=== PATIENT | male | born 1960 | race Caucasian/White ===

== ENCOUNTER 2016-10-25 20:23 | Emergency (ER) | payer MEDICAID ==
--- NOTE | 2016-10-25 20:46 | ERNOTE ---
Abdominal HPI - General Chief Complaint: Abdominal Pain Time Seen by Provider: 10/25/16 20:29 Source: patient Exam Limitations: no limitations - Immun/Allergies/Home Medications Immunizatons: IMMUNIZATION HX Immunizations Up to Date Yes History of Influenza Vaccine No Hx Pneumococcal Vaccination Yes Allergies/Adverse Reactions: Allergies clarithromycin [From Biaxin] Allergy (Verified 10/25/16 20:38) hydrocodone Allergy (Verified 10/25/16 20:38) Home Medications: HOME MEDICATIONS Ciprofloxacin HCl [Cipro] 500 mg PO BID #20 tablet 10/25/16 [Last Taken Unknown] metroNIDAZOLE [Flagyl] 500 mg PO Q8H #30 tablet 10/25/16 [Last Taken Unknown] traMADol HCL [Tramadol HCl ER] 100 mg PO DAILY PRN #10 cpbp.25.75 10/25/16 [ Last Taken Unknown] - History of Present Illness Narrative: Patient presents for severe abdominal pain and bloating and diarrhea. The abdominal pain and bloating started at 7:30 tonight. The diarrhea started 7 days ago. Review of Systems - Review of Systems Constitutional: Present: no symptoms reported EYE: Present: no symptoms reported ENT: Present: no symptoms reported Respiratory: Present: cough Gastrointestinal/Abdominal: Present: See HPI, diarrhea - Patient's Past Medical History Patient History - Medical: No pertinent hx Patient History - Cardiac/Respiratory: Asthma, COPD, CVA/Stroke, Myocardial Infarction Patient History - Cancer: No Hx of Cancer Patient History - Surgical Procedures: Appendectomy Patient History - Other: None - Social History Living Situations: home Psych History: No pertinent hx Smoking Status: Former smoker Alcohol Use: none Drug Use: none - Immunizations Immunizations Up to Date: Yes Hx Pneumococcal Vaccination: Yes History of Influenza Vaccine: No Physical Exam - Physical Exam General Appearance: Present: wd/wn, alert, no apparent distress Head Exam: Present: normal inspection, no evidence of injury Neck: Present: normal inspection, nontender Respiratory: Present: no respiratory distress, normal breath sounds, no accessory muscle use, chest nontender, lungs clear Cardiovascular/Chest: Present: regular rate, rhythm, no murmur, normal peripheral pulses Gastrointestinal/Abdominal: Present: other - abdomen is distended and tense I hear very distant episodic bowel sounds. Patient has diffuse abdominal tenderness on palpation, there appears to not be any rebound tenderness and I don't feel any masses deep palpation of his belly is virtually impossible as the patient's abdomen is distended and tense and tender. ED Progress - Results and Orders Patient's Lab Results:: I have reviewed the patient's lab results. - Vital Signs Patient's Vital Signs:: I have reviewed the patient's vital signs. Vital Signs: Vital Signs 10/25/16 20:32 Temperature 37 C Pulse Rate 97 Respiratory 18 Rate Blood Pressure 132/84 O2 Sat by Pulse 95 Oximetry - Progress/Reassessment Chief Complaint: Abdominal Pain Plan - Plan Plan: The CT reveals findings potentially consistent with inflammation of the mesentery. She complains of pain and diarrhea at this time this examiner were treat him for colitis/inflammation of the mesentery and treat his pain and have him follow-up with his primary care doctor Departure - Departure Clinical Impression: Colitis, Mesenteric adenitis Disposition: Home self-care Condition: Good Instructions: Chronic Diarrhea Referrals: Yordy Charles MD [Primary Care Provider] - Prescriptions: Ciprofloxacin HCl [Cipro] 500 mg PO BID #20 tablet metroNIDAZOLE [Flagyl] 500 mg PO Q8H #30 tablet traMADol HCL [Tramadol HCl ER] 100 mg PO DAILY PRN #10 cpbp.25.75 PRN Reason: Pain
[2016-10-25] MEDS ORDERED: NORMAL SALINE 1,000 ML IV ONE (20:50)
[2016-10-25] MEDS ORDERED: ONDANSETRON HCL/PF 2 MG/ML VIAL IV ONE (21:02)
[2016-10-25 21:07] LABS: Hematocrit 41.4 % (42.0-52.0); Hemoglobin 13.9 gm/dL (13.5-18.0); Mean Cell Volume 87.2 fl (78-100); Mean Corpuscular Hemoglobin 29.3 pg (27-31); Mean Corpuscular Hgb Conc 33.6 g/dl (32-36); Mean Platelet Volume 9.2 fl (6.0-9.5); Neutrophil % 71.6 % (42-75.0); Platelet Count 287 K/mm3 (150-450); Red Blood Count 4.75 M/mm3 (4.7-6.0); Red Cell Distribution Width 13.5 % (11.5-14.0); White Blood Count 12.5 K/mm3 (4.0-10.5)
[2016-10-25] MEDS ORDERED: DIATRIZOATE MEGLUMINE, SODIUM 30 ML BTL ONE (21:08)
[2016-10-25] MEDS ORDERED: ONDANSETRON HCL/PF 2 MG/ML VIAL ONE (21:08)
[2016-10-25 21:19] LABS: Albumin * 3.6 gm/dl (3.4-5.0); Anion Gap 13.7 mmol/L (6.8-13.8); BUN/Creatinine Ratio 9.4 (9.0-21.6); Bilirubin, Total 0.6 mg/dL (0.0-1.1); Ca. Corrected For Albumin 8.4 mg/dL (8.4-10.2); Calcium * 8.4 mg/dL (7.9-10.9); Carbon Dioxide 27.8 mmol/L (24-32.6); Potassium 3.5 mmol/L (3.4-4.6); Total Protein 7.3 gm/dL (6.2-8.2)
[2016-10-25] MEDS ORDERED: DIATRIZOATE MEGLUMINE, SODIUM 30 ML BTL PO ONE (21:29)
[2016-10-25 22:09] LABS: Urine Bilirubin Negative (NEGATIVE); Urine Blood 25 /ul (NEGATIVE); Urine Ketone Negative (NEGATIVE); Urine Nitrite Negative (NEGATIVE); Urine Protein Negative (NEGATIVE); Urine Specific Gravity >=1.030 SP.GR. (1.005-1.030); Urine Urobilinogen Normal (NORMAL); Urine pH 5.5 pH (5.0-7.0)
[2016-10-25 22:21] LABS: Urine Appearance Clear; Urine Bacteria None Seen; Urine Color Dark Yellow; Urine Mucus Few - 1+; Urine RBC 0-5 /hpf (0-5); Urine WBC None Seen /hpf (0-5)
[2016-10-25 23:26] VITALS: BP 125/72
[2016-10-25] MEDS ORDERED: metroNIDAZOLE 500 MG TABLET PO ONE (23:46)
[2016-10-25] MEDS ORDERED: CIPROFLOXACIN HCL 250 MG TABLET PO ONE (23:46)
[2016-10-25] MEDS ORDERED: metroNIDAZOLE 500 MG TABLET ONE (23:47)
[2016-10-25] MEDS ORDERED: CIPROFLOXACIN HCL 250 MG TABLET ONE (23:47)
[2016-10-25] MEDS ORDERED: traMADol HCL 50 MG TABLET PO ONE (23:51)
[2016-10-25] MEDS ORDERED: KETOROLAC TROMETHAMINE 30 MG/ML VIAL IV ONE (23:52)
[2016-10-25] MEDS ORDERED: traMADol HCL 50 MG TABLET ONE (23:52)
== END 2016-10-25 23:58 | disposition home or self-care (01) ==
LOC: ER 20:23
DX: K52.9 Noninfective gastroenteritis and colitis, unspecified (principal); I88.0 Nonspecific mesenteric lymphadenitis
CPT/HCPCS: 36415; 74177; 80053; 81001; 85025; 96374; 99284; J2405

== ENCOUNTER 2016-11-04 12:15 | Emergency (ER) | payer MEDICAID ==
[2016-11-04] MEDS ORDERED: METOCLOPRAMIDE HCL 5 MG/ML VIAL IV ONE (12:51)
[2016-11-04] MEDS ORDERED: diphenhydrAMINE HCL 50 MG/ML VIAL IV ONE (12:51)
[2016-11-04] MEDS ORDERED: NORMAL SALINE 1,000 ML IV ONE ×2 (12:51→15:37)
[2016-11-04 13:19] LABS: Hematocrit 44.4 % (42.0-52.0); Mean Cell Volume 87.9 fl (78-100); Mean Corpuscular Hemoglobin 29.7 pg (27-31); Mean Corpuscular Hgb Conc 33.8 g/dl (32-36); Platelet Count 267 K/mm3 (150-450); Red Blood Count 5.05 M/mm3 (4.7-6.0); Red Cell Distribution Width 13.6 % (11.5-14.0); White Blood Count 17.9 K/mm3 (4.0-10.5)
[2016-11-04 13:23] LABS: Total Cells Counted 100
[2016-11-04 13:29] LABS: Eosinophil 18 % (0-3); Lymphocyte 13 % (20-51); Monocyte 8 % (0-9); Neutrophil 61 % (42-75); Neutrophil # 10.9 K/mm3 (1.3-6.0)
[2016-11-04 13:30] LABS: Platelet Estimate Normal (NORMAL); RBC Morphology Normal (NORMAL)
[2016-11-04] MEDS ORDERED: METOCLOPRAMIDE HCL 5 MG/ML VIAL ONE (13:30)
[2016-11-04] MEDS ORDERED: diphenhydrAMINE HCL 50 MG/ML VIAL ONE (13:30)
[2016-11-04 13:31] LABS: Albumin * 3.6 gm/dl (3.4-5.0); Anion Gap 18.5 mmol/L (6.8-13.8); BUN/Creatinine Ratio 11.2 (9.0-21.6); Bilirubin, Total 0.8 mg/dL (0.0-1.1); Ca. Corrected For Albumin 8.8 mg/dL (8.4-10.2); Calcium * 8.8 mg/dL (7.9-10.9); Carbon Dioxide 22.4 mmol/L (24-32.6); Potassium 3.9 mmol/L (3.4-4.6); Total Protein 7.2 gm/dL (6.2-8.2)
[2016-11-04 14:34] LABS: Urine Bilirubin Negative (NEGATIVE); Urine Blood Negative /ul (NEGATIVE); Urine Ketone Negative (NEGATIVE); Urine Protein 15 mg/dL (NEGATIVE); Urine Specific Gravity >=1.030 SP.GR. (1.005-1.030); Urine Urobilinogen Normal (NORMAL); Urine pH 5.5 pH (5.0-7.0)
[2016-11-04 14:47] LABS: Urine Amorphous Sediment Many - 3+ (NONE-FEW); Urine Appearance Turbid; Urine Bacteria 2+; Urine Color Brown; Urine Nitrite Positive (NEGATIVE); Urine RBC TRACE /hpf (0-5)
[2016-11-04] MEDS ORDERED: KETOROLAC TROMETHAMINE 30 MG/ML VIAL IV ONE (15:03)
[2016-11-04] MEDS ORDERED: KETOROLAC TROMETHAMINE 30 MG/ML VIAL ONE (15:08)
[2016-11-04] MEDS ORDERED: DICYCLOMINE HCL 10 MG/ML AMPUL IM ONE ×2 (16:08→16:09)
--- NOTE | 2016-11-04 16:50 | ERNOTE ---
Abdominal HPI - General Chief Complaint: Abdominal Pain Time Seen by Provider: 11/04/16 12:20 Source: patient, family Exam Limitations: no limitations - Immun/Allergies/Home Medications Immunizatons: IMMUNIZATION HX Immunizations Up to Date Yes History of Influenza Vaccine Yes Hx Pneumococcal Vaccination No Allergies/Adverse Reactions: Allergies clarithromycin [From Biaxin] Allergy (Verified 11/04/16 12:23) hydrocodone Allergy (Verified 11/04/16 12:23) Home Medications: HOME MEDICATIONS Ciprofloxacin HCl [Cipro] 500 mg PO BID #20 tablet 10/25/16 [Last Taken Unknown] metroNIDAZOLE [Flagyl] 500 mg PO Q8H #30 tablet 10/25/16 [Last Taken Unknown] traMADol HCL [Tramadol HCl ER] 100 mg PO DAILY PRN #10 cpbp.25.75 10/25/16 [ Last Taken Unknown] Dicyclomine HCl [Bentyl] 10 mg PO TID #30 capsule 11/04/16 [Last Taken Unknown] Ondansetron [Zofran Odt] 4 mg PO Q6H PRN #20 tab 11/04/16 [Last Taken Unknown] - History of Present Illness Narrative: Patient has had several weeks of abdominal pain with profound diarrhea as well as nausea and vomiting. He states she still has significant cramping abdominal pain and still feels somewhat nauseated. Patient is very frustrated because he' s had multiple CAT scans without being able to figure out exactly was going on, he rates his pain as moderate to severe in intensity. Timing: constant, intermittent Quality: severe, cramping Activities at Onset: none Modifying Factors - (Improves): Present: vomiting Modifying Factors - (Worsens): Present: eating Associated Symptoms: Present: diarrhea-mucous, nausea, vomiting Prior Treatment: Present: recently seen, treated by physician, currently on antibiotics Review of Systems - Review of Systems Constitutional: Present: See HPI EYE: Present: no symptoms reported ENT: Present: no symptoms reported Respiratory: Present: no symptoms reported Cardiology: Present: no symptoms reported Gastrointestinal/Abdominal: Present: nausea, vomiting, diarrhea Genitourinary: Present: decreased urinary output Musculoskeletal: Present: no symptoms reported Skin: Present: no symptoms reported Neurological: Present: no symptoms reported Endocrine: Present: no symptoms reported Hematologic/Lymphatic: Present: no symptoms reported Psych: Present: no symptoms reported - Patient's Past Medical History Patient History - Medical: No pertinent hx Patient History - Cardiac/Respiratory: Asthma, COPD, CVA/Stroke, Myocardial Infarction Patient History - Cancer: No Hx of Cancer Patient History - Surgical Procedures: Appendectomy Patient History - Other: None - Social History Living Situations: home Abuse History: No History of abuse Psych History: No pertinent hx Smoking Status: Former smoker Alcohol Use: none Drug Use: none - Immunizations Immunizations Up to Date: Yes Hx Pneumococcal Vaccination: No History of Influenza Vaccine: Yes Physical Exam - Physical Exam General Appearance: Present: wd/wn, alert, severe distress Head Exam: Present: normal inspection Eye Exam: Normal inspection: bilateral, PERRL: bilateral Ears, Nose, Throat: Present: normal pharynx, dry mucous membranes Neck: Present: normal inspection, nontender Respiratory: Present: no respiratory distress, normal breath sounds, no accessory muscle use, chest nontender, lungs clear Cardiovascular/Chest: Present: regular rate, rhythm, no murmur, normal peripheral pulses Gastrointestinal/Abdominal: Present: normal bowel sounds, nondistended, tenderness, guarding Rectal Exam: Present: deferred Back Exam: Present: normal inspection, normal range of motion Extremity Exam: Present: normal inspection, non-tender, no edema, normal range of motion Neurological Exam: Present: alert, oriented, normal mood/affect Skin Exam: Present: normal color, warm/dry Lymphatic Exam: Present: no adenopathy ED Progress - Results and Orders Patient's Lab Results:: I have reviewed the patient's lab results. - Vital Signs Patient's Vital Signs:: I have reviewed the patient's vital signs. Vital Signs: Vital Signs 11/04/16 11/04/16 11/04/16 12:18 12:49 12:51 Temperature 36.7 C Pulse Rate 96 101 H 102 H Respiratory 16 18 16 Rate Blood Pressure 143/73 151/80 133/84 O2 Sat by Pulse 96 94 93 Oximetry 11/04/16 11/04/16 11/04/16 13:04 14:04 14:28 Temperature Pulse Rate 100 90 93 Respiratory 13 19 18 Rate Blood Pressure 136/85 131/72 122/69 O2 Sat by Pulse 95 97 97 Oximetry 11/04/16 14:50 Temperature Pulse Rate 91 Respiratory 23 H Rate Blood Pressure 139/83 O2 Sat by Pulse 98 Oximetry - X-Ray X-Ray #1 X-Ray: abdomen Interpretation: Reviewed by me - Progress/Reassessment Chief Complaint: Abdominal Pain Progress:: Improved Plan - Plan Plan: Patient was not able to give us any urine to after the first liter fluid, and after the second liter of fluid he started to feel significantly better. We did have to give him 10 of Reglan and 50 of Benadryl IV, 1 g of Rocephin IV to treat UTI and 20 mg of Bentyl IM. Patient states she is feeling so much better now and much closer to his baseline, the best he has felt in several weeks. The patient is started to have his first formed stool here in the ED and it was negative proceed, so we will have him hold off with any further antibiotics at this point. He will be given a prescription for Zofran as well as Bentyl for any further abdominal pain and spasms. He will stay on his probiotics and he will call Dr. Phillips for a follow-up appointment. Departure - Departure Clinical Impression: Gastroenteritis Disposition: Home self-care Condition: Good Instructions: Viral Gastroenteritis, Adult, [id number] Referrals: Yordy Charles MD [Primary Care Provider] - Prescriptions: Dicyclomine HCl [Bentyl] 10 mg PO TID #30 capsule Ondansetron [Zofran Odt] 4 mg PO Q6H PRN #20 tab PRN Reason: Nausea And Vomiting
[2016-11-04] MEDS ORDERED: ONDANSETRON 4 MG TAB.RAPDIS PO ONE (17:06)
[2016-11-04] MEDS ORDERED: DICYCLOMINE HCL 20 MG TABLET ONE (17:06)
[2016-11-04] MEDS ORDERED: DICYCLOMINE HCL 10 MG CAPSULE PO ONE (17:06)
[2016-11-04] MEDS ORDERED: ONDANSETRON 4 MG TAB.RAPDIS ONE ×2 (17:06→17:08)
[2016-11-04] MEDS ORDERED: DICYCLOMINE HCL 10 MG CAPSULE ONE (17:12)
[2016-11-04 17:47] VITALS: BP 126/71
== END 2016-11-04 17:54 | disposition home or self-care (01) ==
LOC: ER 12:15
DX: K52.9 Noninfective gastroenteritis and colitis, unspecified (principal)

== ENCOUNTER 2016-11-30 13:47 | Emergency (ER) | payer MEDICAID ==
[2016-11-30] MEDS ORDERED: ONDANSETRON HCL/PF 2 MG/ML VIAL IV ONE (14:32)
[2016-11-30] MEDS ORDERED: NORMAL SALINE 1,000 ML IV ONE (14:33)
[2016-11-30] MEDS ORDERED: KETOROLAC TROMETHAMINE 30 MG/ML VIAL IV ONE (14:33)
[2016-11-30] MEDS ORDERED: METHYLPREDNISOLONE SOD SUCC/PF 40 MG/ML VIAL IV ONE (14:34)
[2016-11-30] MEDS ORDERED: ORPHENADRINE CITRATE 30 MG/ML VIAL IM ONE (14:38)
[2016-11-30] MEDS ORDERED: KETOROLAC TROMETHAMINE 60 MG/2 ML VIAL IM ONE (14:38)
--- NOTE | 2016-11-30 14:42 | ERNOTE ---
Abdominal HPI - Narrative Date of Service: 11/30/16 - General Chief Complaint: Abdominal Pain Time Seen by Provider: 11/30/16 13:57 - Immun/Allergies/Home Medications Immunizatons: IMMUNIZATION HX Immunizations Up to Date Yes History of Influenza Vaccine No Hx Pneumococcal Vaccination No Allergies/Adverse Reactions: Allergies clarithromycin [From Biaxin] Allergy (Verified 11/30/16 13:58) hydrocodone Allergy (Verified 11/30/16 13:58) Home Medications: HOME MEDICATIONS Dicyclomine HCl [Bentyl] 10 mg PO TID #30 capsule 11/04/16 [Last Taken Unknown] Ondansetron [Zofran Odt] 4 mg PO Q6H PRN #20 tab 11/04/16 [Last Taken Unknown] Amitriptyline HCl 11/30/16 [Last Taken Unknown] Simvastatin 11/30/16 [Last Taken Unknown] predniSONE [Prednisone] 3 tab PO DAILY #9 tab 11/30/16 [Last Taken Unknown] - History of Present Illness Narrative: Pt. comes in with c/o severe diarrhea, and abdominal pain for three months. Pt. states that he has had multiple CTs and ultrasounds and was diagnosed with colitis and has been hospitalized once last week for three days with short term relief of symptoms but states that they return after medications wear off. Review of Systems - Review of Systems Constitutional: Present: weakness, fatigue, malaise. Absent: fever, chills EYE: Present: no symptoms reported. Absent: eye pain, double vision, vision changes ENT: Present: no symptoms reported. Absent: nose congestion, nasal drainage, sore throat Respiratory: Present: no symptoms reported. Absent: shortness of breath, cough , wheezing Cardiology: Present: no symptoms reported. Absent: chest pain, palpitations, edema Gastrointestinal/Abdominal: Present: nausea, vomiting, diarrhea, abdominal pain , eating less, drinking less. Absent: constipation Genitourinary: Present: no symptoms reported Musculoskeletal: Present: no symptoms reported. Absent: back pain, joint pain Skin: Present: no symptoms reported. Absent: rash, dryness, lesions, change in color, change in hair/nails Neurological: Present: no symptoms reported. Absent: headache, dizziness/light- headedness, numbness, tingling All Other Systems: All systems neg except as marked - Patient's Past Medical History Patient History - Medical: Diabetes Type 2 Patient History - Cardiac/Respiratory: Asthma, COPD, CVA/Stroke, Myocardial Infarction Patient History - Cancer: No Hx of Cancer Patient History - Surgical Procedures: Appendectomy Patient History - Other: None - Social History Living Situations: home Abuse History: No History of abuse Psych History: No pertinent hx Smoking Status: Former smoker Patient requests Smoking Cessation Consult: No Initiate information on Smoking Cessation: No Alcohol Use: none Drug Use: none - Immunizations Immunizations Up to Date: Yes Hx Pneumococcal Vaccination: No History of Influenza Vaccine: No Physical Exam - Physical Exam General Appearance: Present: wd/wn, alert, no apparent distress Head Exam: Present: normal inspection, no evidence of injury Eye Exam: Normal inspection: bilateral, PERRL: bilateral, EOMI: bilateral Ears, Nose, Throat: Present: normal ENT inspection, normal pharynx Neck: Present: normal inspection, nontender. Absent: lymphadenopathy (R), lymphadenopathy (L) Respiratory: Present: no respiratory distress, normal breath sounds, no accessory muscle use, chest nontender, lungs clear Cardiovascular/Chest: Present: regular rate, rhythm, no murmur, normal peripheral pulses Gastrointestinal/Abdominal: Present: tenderness - throughout, distended. Absent : rebound, Hdez sign, Psoas sign, mass, hernia, hepatomegaly Back Exam: Present: normal inspection, normal range of motion, no CVA tenderness , no vertebral tenderness Extremity Exam: Present: normal inspection, non-tender, normal range of motion, no edema Neurological Exam: Present: alert, oriented, normal mood/affect, no motor/ sensory deficits Skin Exam: Present: normal color, warm/dry. Absent: pallor, skin rash ED Progress - Date and Time Seen: Date and Time: 11/30/16 15:59 Feel that as pt. clearly has colitis and antibiotics are not helping that pt. may have crohns vs UC. Pt. has appointment to have colonoscopy and egd on feel that steroid burst should help with this. - Results and Orders Patient's Lab Results:: I have reviewed the patient's lab results. Results and Orders: Pt. currently on abx without fever feel elevated WBC is caused by abx - Vital Signs Patient's Vital Signs:: I have reviewed the patient's vital signs. Vital Signs: Vital Signs 11/30/16 11/30/16 13:52 14:10 Temperature 37.0 C Pulse Rate 98 100 Respiratory 17 17 Rate Blood Pressure 123/82 108/75 O2 Sat by Pulse 93 93 Oximetry - X-Ray X-Ray #1 X-Ray: abdomen Interpretation: Reviewed by me X-ray Comments: air fluid levels indicative of loose stools, not changed from previous, non obstructive bowel gas pattern - Progress/Reassessment Chief Complaint: Abdominal Pain Departure Clinical Impression: Colitis - Departure Disposition: Home self-care Condition: Good Instructions: Colitis, Ulcerative Colitis, Adult, Crohn Disease Additional Instructions: Please follow up with primary provider in 2-3 days. Please keep taking probiotic. Please follow colitis diet. Please follow up with your scheduled testing in December. Referrals: Yordy Charles MD [Primary Care Provider] - Prescriptions: predniSONE [Prednisone] 3 tab PO DAILY #9 tab
[2016-11-30] MEDS ORDERED: METHYLPREDNISOLONE SOD SUCC/PF 40 MG/ML VIAL ONE (14:45)
[2016-11-30] MEDS ORDERED: KETOROLAC TROMETHAMINE 30 MG/ML VIAL ONE (14:45)
[2016-11-30] MEDS ORDERED: ONDANSETRON HCL/PF 2 MG/ML VIAL ONE (14:45)
[2016-11-30 14:49] LABS: Hematocrit 43.2 % (42.0-52.0); Hemoglobin 14.3 gm/dL (13.5-18.0); Mean Cell Volume 89.1 fl (78-100); Mean Corpuscular Hemoglobin 29.5 pg (27-31); Mean Corpuscular Hgb Conc 33.1 g/dl (32-36); Neutrophil # 11.6 K/mm3 (1.3-6.0); Neutrophil % 77.3 % (42-75.0); Platelet Count 313 K/mm3 (150-450); Red Blood Count 4.85 M/mm3 (4.7-6.0); Red Cell Distribution Width 13.4 % (11.5-14.0)
[2016-11-30 15:03] LABS: Albumin * 3.8 gm/dl (3.4-5.0); Anion Gap 9.7 mmol/L (6.8-13.8); BUN/Creatinine Ratio 9.9 (9.0-21.6); Bilirubin, Total 0.9 mg/dL (0.0-1.1); Ca. Corrected For Albumin 8.5 mg/dL (8.4-10.2); Calcium * 8.7 mg/dL (7.9-10.9); Carbon Dioxide 33.5 mmol/L (24-32.6); Potassium 4.2 mmol/L (3.4-4.6); Total Protein 7.6 gm/dL (6.2-8.2)
[2016-11-30 15:04] LABS: Urine Appearance Slightly Cloudy; Urine Bilirubin Negative (NEGATIVE); Urine Color Yellow
[2016-11-30 15:05] LABS: Urine Bacteria None Seen; Urine Blood 10 /ul (NEGATIVE); Urine Ketone Negative (NEGATIVE); Urine Nitrite Negative (NEGATIVE); Urine Protein Negative (NEGATIVE); Urine RBC 0-5 /hpf (0-5); Urine Specific Gravity 1.025 SP.GR. (1.005-1.030); Urine Urobilinogen Normal (NORMAL); Urine WBC 0-5 /hpf (0-5); Urine pH 6.5 pH (5.0-7.0)
[2016-11-30 16:39] VITALS: BP 108/60
== END 2016-11-30 17:10 | disposition home or self-care (01) ==
LOC: ER 13:47
DX: K52.9 Noninfective gastroenteritis and colitis, unspecified (principal); Z87.891 Personal history of nicotine dependence
CPT/HCPCS: 36415; 74020; 80053; 81001; 82150; 83690; 85025; 96374; 99284; J2405

== ENCOUNTER 2016-12-10 13:16 | Emergency (ER) | payer MEDICAID ==
[2016-12-10 13:24] VITALS: BP 154/78
[2016-12-10] MEDS ORDERED: MAG HYDROX/ALUMINUM HYD/SIMETH 30 ML UDC PO ONE (13:31)
[2016-12-10] MEDS ORDERED: SUCRALFATE 1 G/10 ML UDC PO ONE (13:31)
[2016-12-10] MEDS ORDERED: LIDOCAINE HCL 20 ML UDC PO ONE (13:31)
[2016-12-10] MEDS ORDERED: DICYCLOMINE HCL 10 MG/ML AMPUL IM ONE ×2 (13:33→13:35)
[2016-12-10] MEDS ORDERED: KETOROLAC TROMETHAMINE 30 MG/ML VIAL IM ONE (13:33)
[2016-12-10] MEDS ORDERED: KETOROLAC TROMETHAMINE 30 MG/ML VIAL ONE (13:35)
--- NOTE | 2016-12-10 13:39 | ERNOTE ---
Abdominal HPI - Narrative Date of Service: 12/10/16 - General Chief Complaint: Abdominal Pain Time Seen by Provider: 12/10/16 13:24 Source: patient Exam Limitations: no limitations - Immun/Allergies/Home Medications Immunizatons: IMMUNIZATION HX Immunizations Up to Date Yes History of Influenza Vaccine No Hx Pneumococcal Vaccination No Allergies/Adverse Reactions: Allergies clarithromycin [From Biaxin] Allergy (Verified 12/10/16 13:24) hydrocodone Allergy (Verified 12/10/16 13:24) Home Medications: HOME MEDICATIONS Dicyclomine HCl [Bentyl] 10 mg PO TID #30 capsule 11/04/16 [Last Taken Unknown] Ondansetron [Zofran Odt] 4 mg PO Q6H PRN #20 tab 11/04/16 [Last Taken Unknown] Amitriptyline HCl 11/30/16 [Last Taken Unknown] Simvastatin 11/30/16 [Last Taken Unknown] Sucralfate [Carafate] 1 gm PO ACHS #40 oral.susp 12/10/16 [Last Taken Unknown] - History of Present Illness Narrative: Pt. comes in with c/o RUQ pain for months that was resolved after his last visit a week ago but started getting bad again two days ago. Pt. denies any NVD which is different that the previous episodes. Pt. has been here multiple times for this problem. Pt. has been diagnosed with colitis and has an appointment with a advertising specialist on the for colonoscopy and egd. Review of Systems - Review of Systems Constitutional: Present: no symptoms reported. Absent: recent illness, fever, chills, weakness, fatigue, malaise EYE: Present: no symptoms reported ENT: Present: no symptoms reported Respiratory: Present: no symptoms reported. Absent: shortness of breath, cough , wheezing Cardiology: Present: no symptoms reported. Absent: chest pain, palpitations, edema Gastrointestinal/Abdominal: Present: abdominal pain. Absent: nausea, vomiting, diarrhea Genitourinary: Present: no symptoms reported Musculoskeletal: Present: no symptoms reported. Absent: back pain, joint pain Skin: Present: no symptoms reported. Absent: rash, change in hair/nails Neurological: Present: no symptoms reported. Absent: headache, dizziness/light- headedness, numbness, tingling All Other Systems: All systems neg except as marked - Patient's Past Medical History Patient History - Medical: Diabetes Type 2 Patient History - Cardiac/Respiratory: Asthma, COPD, CVA/Stroke, Myocardial Infarction Patient History - Cancer: No Hx of Cancer Patient History - Surgical Procedures: Appendectomy Patient History - Other: None - Social History Abuse History: No History of abuse Psych History: No pertinent hx Smoking Status: Never smoker Have you smoked in the past 12 months: No - Immunizations Immunizations Up to Date: Yes Hx Pneumococcal Vaccination: No History of Influenza Vaccine: No Physical Exam - Physical Exam General Appearance: Present: wd/wn, alert, no apparent distress Head Exam: Present: normal inspection, no evidence of injury Eye Exam: Normal inspection: bilateral, PERRL: bilateral, EOMI: bilateral Ears, Nose, Throat: Present: normal ENT inspection, normal pharynx Neck: Present: normal inspection, nontender. Absent: lymphadenopathy (R), lymphadenopathy (L) Respiratory: Present: no respiratory distress, normal breath sounds, no accessory muscle use, chest nontender, lungs clear Cardiovascular/Chest: Present: regular rate, rhythm, no murmur, normal peripheral pulses Gastrointestinal/Abdominal: Present: normal bowel sounds, no organomegaly, tenderness - diffuse BUQ, distended, guarding. Absent: rebound Back Exam: Present: normal inspection, normal range of motion, no CVA tenderness , no vertebral tenderness Extremity Exam: Present: normal inspection, non-tender, normal range of motion, no edema Neurological Exam: Present: alert, oriented, normal mood/affect, no motor/ sensory deficits Skin Exam: Present: normal color, warm/dry. Absent: pallor, skin rash ED Progress - Date and Time Seen: Date and Time: 12/10/16 14:23 Pt. resolved within 5 minutes of receiving GI cocktail so feel that this is gastritis and feel taht the abx for H Pylori would possibly make the colitis worse so will add in carafate to pt. regimen prior to meals. - Vital Signs Patient's Vital Signs:: I have reviewed the patient's vital signs. Vital Signs: Vital Signs 12/10/16 13:21 Temperature 36.8 C Pulse Rate 100 Respiratory 16 Rate Blood Pressure 154/78 O2 Sat by Pulse 99 Oximetry - X-Ray X-Ray #1 X-Ray: abdomen Interpretation: Reviewed by me X-ray Comments: non obstructive gas pattern appearance of air fluid levels from previous xray resolved but calcification that is chronic on his RUQ. - Progress/Reassessment Chief Complaint: Abdominal Pain Departure Clinical Impression: Colitis Gastritis Qualifiers: Gastritis type: unspecified gastritis Chronicity: acute Gastritis bleeding: without bleeding Qualified Code(s): K29.00 - Acute gastritis without bleeding - Departure Disposition: Home self-care Condition: Good Instructions: Gastritis, Adult, [id number] Additional Instructions: Please follow colitis diet and continue omeprazole and follow up with your GI doctor as planned. Referrals: Yordy Charles MD [Primary Care Provider] - Prescriptions: Sucralfate [Carafate] 1 gm PO ACHS #40 oral.susp
[2016-12-10 13:47] LABS: Hematocrit 43.9 % (42.0-52.0); Hemoglobin 14.9 gm/dL (13.5-18.0); Mean Cell Volume 88.3 fl (78-100); Mean Corpuscular Hgb Conc 33.9 g/dl (32-36); Mean Platelet Volume 9.5 fl (6.0-9.5); Neutrophil # 7.1 K/mm3 (1.3-6.0); Neutrophil % 66.4 % (42-75.0); Platelet Count 269 K/mm3 (150-450); Red Blood Count 4.97 M/mm3 (4.7-6.0); Red Cell Distribution Width 13.5 % (11.5-14.0); White Blood Count 10.7 K/mm3 (4.0-10.5)
[2016-12-10 13:54] LABS: Urine Bilirubin Negative (NEGATIVE); Urine Ketone Negative (NEGATIVE); Urine Nitrite Negative (NEGATIVE); Urine Protein Negative (NEGATIVE); Urine Specific Gravity 1.015 SP.GR. (1.005-1.030); Urine Urobilinogen Normal (NORMAL)
[2016-12-10 14:03] LABS: Albumin * 3.7 gm/dl (3.4-5.0); Anion Gap 10.3 mmol/L (6.8-13.8); BUN/Creatinine Ratio 11.5 (9.0-21.6); Bilirubin, Total 0.6 mg/dL (0.0-1.1); Ca. Corrected For Albumin 8.7 mg/dL (8.4-10.2); Calcium * 8.8 mg/dL (7.9-10.9); Carbon Dioxide 30.3 mmol/L (24-32.6); Potassium 4.6 mmol/L (3.4-4.6); Total Protein 7.7 gm/dL (6.2-8.2)
[2016-12-10 14:07] LABS: Urine Appearance Clear; Urine Bacteria None Seen; Urine Blood 5 /ul (NEGATIVE); Urine Color Yellow; Urine RBC None Seen /hpf (0-5); Urine WBC None Seen /hpf (0-5)
== END 2016-12-10 14:42 | disposition home or self-care (01) ==
LOC: ER 13:16
DX: R10.84 Generalized abdominal pain (principal); K29.00 Acute gastritis without bleeding